=== PATIENT | male | born 1935 | race Caucasian/White ===

== ENCOUNTER 2021-06-10 17:11 | Inpatient (IN) | payer OTHER ==
[~2021-06-10] VITALS: Ht 185.4 cm; Wt 90.4 kg
[~2021-06-10 17:11] MED LIST: CEPH500 PO; HYDACE5 PO; SERT50; SIMV40
[2021-06-10 18:25] LABS: BASOPHILS ABSOLUTE AUTO 0.02 K/mm3 (0.00-0.23); BASOPHILS PERCENT AUTO 0 % (0-2); EOSINOPHILS ABSOLUTE AUTO 0.02 K/mm3 (0.00-0.68); EOSINOPHILS PERCENT AUTO 0 % (0-6); IMMATURE GRAN ABSOLUTE AUTO 0.04 K/mm3 (0.00-0.10); IMMATURE GRAN PERCENT AUTO 1 % (0-1); LYMPHOCYTES ABSOLUTE AUTO 1.73 K/mm3 (0.84-5.20); LYMPHOCYTES PERCENT AUTO 20 % (21-46); MONOCYTES ABSOLUTE AUTO 0.67 K/mm3 (0.16-1.47); MONOCYTES PERCENT AUTO 8 % (4-13); Mean Corpuscular HGB 31.6 pg (26.0-34.0); Mean Corpuscular HGB Conc 33.3 g/dL (31.5-36.5); Mean Corpuscular Volume 95 fL (80-100); Mean Platelet Volume 9.6 fL (9.1-12.4); NEUTROPHILS PERCENT AUTO 71 % (41-73); Platelet Count 247 K/mm3 (150-400); RDW Coefficient Variation 13.2 % (11.7-14.2); RDW Standard Deviation 46.3 fL (35.1-46.3); Red Blood Cell Count 4.43 M/mm3 (4.30-5.90); White Blood Cell Count 8.48 K/mm3 (4.00-11.30)
[2021-06-10 18:50] LABS: Alanine Aminotransfer (ALT/SGP 19 U/L (12-78); Albumin, Blood 3.4 g/dL (3.4-5.0); Albumin/Globulin Ratio 0.7 (0.8-1.8); Alk Phos 63 U/L (50-136); Anion Gap 6 mmol/L (6-16); Aspartate Aminotrans (AST/SGOT 22 U/L (12-37); Bilirubin, Total 0.5 mg/dL (0.1-1.0); Blood Urea Nitrogen 17 mg/dL (8-24); Bun/Creatinine Ratio 16.7 (12.0-20.0); CO2, Blood 30 mmol/L (21-32); Calcium, Blood 9.4 mg/dL (8.5-10.1); Chloride, Blood 100 mmol/L (98-108); Creatinine, Blood 1.02 mg/dL (0.60-1.20); Globulin, Blood 4.6 g/dL (2.2-4.0); Glomerular Filtration Rate >60 (60-); Glucose, Blood 142 mg/dL (70-99); Potassium, Blood 4.6 mmol/L (3.5-5.5); Sodium, Blood 136 mmol/L (136-145)
[2021-06-10 20:28] LABS: Influenza A, PCR NEGATIVE (NEGATIVE); Influenza B, PCR NEGATIVE (NEGATIVE); Resp Syncytial Virus, PCR NEGATIVE (NEGATIVE); SARS-Cov-2 (COVID-19) PCR, MMC NEGATIVE (NEGATIVE)
[2021-06-11] MEDS ORDERED: AMLO5 PO (01:12)
[2021-06-11] MEDS ORDERED: EUTHYROX50 MCG PO (01:12)
[2021-06-11] MEDS ORDERED: Prinivil10 MG (01:12)
[2021-06-11] MEDS ORDERED: SERT100 PO (01:13)
[2021-06-11 03:41] LABS: BASOPHILS ABSOLUTE AUTO 0.01 K/mm3 (0.00-0.23); BASOPHILS PERCENT AUTO 0 % (0-2); EOSINOPHILS ABSOLUTE AUTO 0.01 K/mm3 (0.00-0.68); EOSINOPHILS PERCENT AUTO 0 % (0-6); Hematocrit 38.1 % (37.0-53.0); Hemoglobin 12.6 g/dL (13.5-17.5); IMMATURE GRAN ABSOLUTE AUTO 0.02 K/mm3 (0.00-0.10); IMMATURE GRAN PERCENT AUTO 0 % (0-1); LYMPHOCYTES ABSOLUTE AUTO 0.88 K/mm3 (0.84-5.20); LYMPHOCYTES PERCENT AUTO 10 % (21-46); MONOCYTES PERCENT AUTO 7 % (4-13); Mean Corpuscular HGB 31.8 pg (26.0-34.0); Mean Corpuscular HGB Conc 33.1 g/dL (31.5-36.5); Mean Corpuscular Volume 96 fL (80-100); Mean Platelet Volume 9.6 fL (9.1-12.4); NEUTROPHILS ABSOLUTE AUTO 7.07 K/mm3 (1.96-9.15); NEUTROPHILS PERCENT AUTO 82 % (41-73); Platelet Count 206 K/mm3 (150-400); RDW Coefficient Variation 13.1 % (11.7-14.2); RDW Standard Deviation 46.9 fL (35.1-46.3); Red Blood Cell Count 3.96 M/mm3 (4.30-5.90); White Blood Cell Count 8.59 K/mm3 (4.00-11.30)
[2021-06-11 04:06] LABS: Alanine Aminotransfer (ALT/SGP 16 U/L (12-78); Albumin, Blood 2.8 g/dL (3.4-5.0); Albumin/Globulin Ratio 0.7 (0.8-1.8); Alk Phos 52 U/L (50-136); Anion Gap 5 mmol/L (6-16); Aspartate Aminotrans (AST/SGOT 17 U/L (12-37); Bilirubin, Total 0.4 mg/dL (0.1-1.0); Blood Urea Nitrogen 23 mg/dL (8-24); Bun/Creatinine Ratio 20.4 (12.0-20.0); CO2, Blood 28 mmol/L (21-32); Calcium, Blood 8.3 mg/dL (8.5-10.1); Chloride, Blood 104 mmol/L (98-108); Creatinine, Blood 1.13 mg/dL (0.60-1.20); Globulin, Blood 3.9 g/dL (2.2-4.0); Glomerular Filtration Rate >60 (60-); Glucose, Blood 153 mg/dL (70-99); Potassium, Blood 5.2 mmol/L (3.5-5.5); Sodium, Blood 137 mmol/L (136-145); Total Protein, Blood 6.7 g/dL (6.4-8.2)
[2021-06-11 09:55] LABS: Source, Urine Foley catheter
[2021-06-11 10:11] LABS: Appearance, Urine Clear (Clear); Bilirubin, Urine Neg (Neg); Blood, Urine 5+ (Neg); Color, Urine Yellow (P-Yellow); Glucose Qualitative, Urine Neg (Neg); Ketones, Urine Neg (Neg); Leukocyte Esterase, Urine 1+ (Neg); Nitrite, Urine Neg (Neg); Protein, Urine 2+ (Neg); Urobilinogen, Urine NORM (Normal)
[2021-06-11 10:32] LABS: Squamous Epithelial Cells Not Seen /hpf (Few); White Blood Cells, Urine 0-2 /hpf (0-5)
[2021-06-11 10:33] LABS: Bacteria Few /hpf; Mucus Mod (0-Heavy)
--- NOTE | 2021-06-11 11:35 | NUR ---
REASSESSMENT PT HAS SPENT MOST OF THE MORNING SITTING UP IN THE CHAIR. DR. SHANNON CAME BY AND OK'D PT TO HAVE ICE CHIPS, WATER AND PO MEDS. PT IS TOELRATING THEM SO FAR. HE HAS HYPOACTIVE BOWEL TONES BUT IS NOT PASSING GAS YET. HIS ABDOMINAL DRESSING IS DRY AND INTACT, SMALL AMT OF OLD DRAINAGE. DR. SHANNON REMOVED NGT DURING HIS ROUNDS. ASKED DR. SHANNON ABOUT REMOVING FRAIRE BUT HE WANTED TO KEEP IT ANOTHER DAY SINCE PT'S UO WAS BORDERLINE OVERNIGHT. LUNGS REMAIN CLEAR, RA, SR, BP STABLE. DR. SHANNON GAVE OK FOR PT TO BE SURGICAL FLOOR STATUS AND DR. PERES ORDERED FOR NO TELE WHEN HE CAME BY. SPOKE WITH PT'S KATHI AND PROVIDED UPDATE. CONTINUING TO MONITOR.
--- NOTE | 2021-06-11 14:17 | NUR ---
Pt. is awake and in bed. Pt. welcomes my visit. Introduce the Pt. to the "What we care to know" survey. As survey proceeds pt. opens up to much detail. Faciliatate a life review. Pt. displays evidence of trust, and verbalizes the context of his family in great detail. Listen with empathy and fascination. Prayed for the pt. and his spouse whose health is compromised as well. Pt. verbalized gratitude for the spiritual care visit. I will post the "What we Care to Know" in his room...ICU-8.
--- NOTE | 2021-06-11 16:33 | NUR ---
SHIFT SUMMARY PT HAS DONE WELL THROUGHOUT THE DAY, SPENDING THE MORNING IN THE CHAIR AND GOING FOR A SHORT WALK. AFTER HIS WALK, PT'S URINE TURNED RED AND A COUPLE SMALL CLOTS, BUT NOW LATER THIS EVENING HIS URINE HAS LIGHTENED BACK TO A LIGHT PEACH COLOR. PT REMAINS ALERT AND ORIENTED, SOMETIMES APPEARS TO HAVE TO SEARCH FOR WORDS TO SAY. LUNGS ARE CLEAR, RA. SR, BP STABLE. ABODMEN IS SOFT, ABDOMINAL BINDER IN PLACE. DRESSINGIS DRY AND INTACT, NO CHANGE IN THE SMALL AMT OF OLD DRAINAGE ON THE DRESSING. TOLERATING ICE WATER. DENIES PASSING GAS, BUT HYPOACTIVE BOWEL TONES AUSCULTATED. PT'S DAUGHTER VISITED THIS AFTERNOON AND WAS UPDATED BY DR. SHANNON AND NURSING STAFF. CONTINUING TO MONITOR.
--- NOTE | 2021-06-11 18:46 | NUR ---
TRANSFER PT TRANSFERRED TO MEDICAL FLOOR RM [id number]. REPORT GIVEN TO CHAPINCITO TABARES. PT TRANSPORTED VIA WC WITH AIDE AND RN. ALL BELONGINGS SENT UPSTAIRS WITH PT. PT TOLERATED TRANSFER WELL.
[2021-06-12 05:19] LABS: Anion Gap 6 mmol/L (6-16); Blood Urea Nitrogen 20 mg/dL (8-24); Bun/Creatinine Ratio 17.9 (12.0-20.0); CO2, Blood 27 mmol/L (21-32); Calcium, Blood 8.3 mg/dL (8.5-10.1); Chloride, Blood 104 mmol/L (98-108); Creatinine, Blood 1.12 mg/dL (0.60-1.20); Glomerular Filtration Rate >60 (60-); Glucose, Blood 114 mg/dL (70-99); Potassium, Blood 4.1 mmol/L (3.5-5.5); Sodium, Blood 137 mmol/L (136-145)
[2021-06-12 05:58] LABS: BASOPHILS ABSOLUTE AUTO 0.02 K/mm3 (0.00-0.23); BASOPHILS PERCENT AUTO 0 % (0-2); EOSINOPHILS ABSOLUTE AUTO 0.03 K/mm3 (0.00-0.68); EOSINOPHILS PERCENT AUTO 0 % (0-6); Hematocrit 36.6 % (37.0-53.0); Hemoglobin 12.2 g/dL (13.5-17.5); IMMATURE GRAN ABSOLUTE AUTO 0.04 K/mm3 (0.00-0.10); IMMATURE GRAN PERCENT AUTO 1 % (0-1); LYMPHOCYTES PERCENT AUTO 15 % (21-46); MONOCYTES ABSOLUTE AUTO 0.77 K/mm3 (0.16-1.47); MONOCYTES PERCENT AUTO 9 % (4-13); Mean Corpuscular HGB 31.8 pg (26.0-34.0); Mean Corpuscular HGB Conc 33.3 g/dL (31.5-36.5); Mean Corpuscular Volume 95 fL (80-100); Mean Platelet Volume 9.3 fL (9.1-12.4); NEUTROPHILS ABSOLUTE AUTO 6.32 K/mm3 (1.96-9.15); NEUTROPHILS PERCENT AUTO 75 % (41-73); Platelet Count 202 K/mm3 (150-400); RDW Coefficient Variation 13.2 % (11.7-14.2); RDW Standard Deviation 46.5 fL (35.1-46.3); Red Blood Cell Count 3.84 M/mm3 (4.30-5.90); White Blood Cell Count 8.48 K/mm3 (4.00-11.30)
--- NOTE | 2021-06-12 06:38 | NUR ---
SHIFT SUMMARY PATIENT ALERT AND ORIENTED X3. HAD NO COMPLAINTS OF PAIN OR SHORTNESS OF BREATH. HAD NO ACUTE ISSUES NOTED OVERNIGHT. BED IN LOWEST POSITION WITH WHEELS LOCKED AND ALARM ON. CALL LIGHT WITHIN REACH. REPORT GIVEN TO ONCOMING RN.
--- NOTE | 2021-06-12 10:17 | NUR ---
06/12/21 1017 Monique Castillo VERIFICATIONS: EDIT CHART.
== END 2021-06-12 15:19 | disposition home or self-care (01) | DRG 354 ==
LOC: ER 17:11 → ICUE 20:51 → ICUW 20:51 → ICUE 22:29 → MEDS 06-11 18:39 → ENPENDDIS 06-12 12:06 → MEDS 06-12 15:19
PROVIDERS: Family Medicine; Physician Assistant; Surgery; ADMIT Hospitalist
PROC: 0WUF0JZ Supplement Abdominal Wall with Synthetic Substitute, Open Approach (ICD-10-PCS; principal; 2021-06-10 20:30)
DX: K43.0 Incisional hernia with obstruction, without gangrene (principal); K55.9 Vascular disorder of intestine, unspecified; I10 Essential (primary) hypertension; E03.9 Hypothyroidism, unspecified; F41.8 Other specified anxiety disorders; Z20.822 Contact with and (suspected) exposure to COVID-19; Z88.8 Allergy status to other drugs, medicaments and biological substances; J44.9 Chronic obstructive pulmonary disease, unspecified; F32.A Depression, unspecified; Z98.890 Other specified postprocedural states
CPT/HCPCS: 0241U; 36415; 80048; 80053; 81001; 83605; 85025; 87086; 93005; 93010; 96374; 99285-25; A9270; C1781; J1100; J1885; J2250; J2405; J2543; J2704; J3010; J7030; J7120

== ENCOUNTER 2022-06-14 05:55 | Day surgery (SDC) | payer OTHER ==
[~2022-06-14] VITALS: Ht 175.3 cm; Wt 87.5 kg
[~2022-06-14 05:55] MED LIST changes: +AMLO5 PO; +EUTHYROX50 MCG PO; +Prinivil10 MG PO; +SERT100 PO
--- NOTE | 2022-06-14 07:12 | NUR ---
History, Chart, Medications and Allergies reviewed before start of procedure. Lungs WITH EXP WHEEZES T/O. DENIES SOB. Patient confirms NPO status and agrees with scheduled surgery. Pre-Op teaching done. Pt verbalizes understanding. Patient reports completing Chlorhexadine shower X2 prior to admission to hospital.
--- NOTE | 2022-06-14 07:25 | NUR ---
PT GIVEN DUO-NEB TREATMENT, EXP WHEEZES IMPROVED, CRACKLES NOTED ON R SIDE UPPER AND LOWER LUNG SAINI. PT COUGHING UP CLEARISH SPUTUM.
--- NOTE | 2022-06-14 08:17 | NUR ---
06/14/22 0817 REGINA JAMES SMALL LACERATION NOTED PRIOR TO OR PROCEDURE ON PT LEFT BARNETT. PROVIDER AWARE.
--- NOTE | 2022-06-14 16:34 | NUR ---
SHIFT SUMMARY PT A&OX4, VSS/RA, BARBY PO REG DIET, VOIDED, PAIN MANAGED WITH TYLENOL/TORADOL, AMB SBA FWW & GB. S/P L TKA, AQUACEL CDI, PHYSICAL THERAPY HONEY WILL REPORT TO ONCOMING NOC RN.
--- NOTE | 2022-06-15 04:53 | NUR ---
SHIFT SUMMARY POD1 L TKA WITH AQUACEL DRESSING, REMAINED CDI. PT REPORTS MINIMAL PAIN, PAIN MANAGED WITH TYLENOL AND TORADOL. POLAR PACK, ANGIE ROBERTS AND SCD. LLE ELEVATED. TOLERATING PO INTAKE. DENIES N/V. VSS. DENIES DIZZINESS. PT WALKED IN THE HALLWAY LAST NIGHT. UP IN THE RECLINER THIS MORNING. AOX4. STEADY ON HIS FEET. CALL LIGHT WITHIN REACH. WILL PROVIDE REPORT TO ONCOMING NURSE.
[2022-06-15 04:57] LABS: BASOPHILS ABSOLUTE AUTO 0.02 K/mm3 (0.00-0.23); BASOPHILS PERCENT AUTO 0 % (0-2); EOSINOPHILS ABSOLUTE AUTO 0.11 K/mm3 (0.00-0.68); EOSINOPHILS PERCENT AUTO 1 % (0-6); Hematocrit 31.9 % (37.0-53.0); Hemoglobin 10.6 g/dL (13.5-17.5); IMMATURE GRAN ABSOLUTE AUTO 0.04 K/mm3 (0.00-0.10); IMMATURE GRAN PERCENT AUTO 1 % (0-1); LYMPHOCYTES ABSOLUTE AUTO 1.82 K/mm3 (0.84-5.20); LYMPHOCYTES PERCENT AUTO 24 % (21-46); MONOCYTES ABSOLUTE AUTO 0.65 K/mm3 (0.16-1.47); MONOCYTES PERCENT AUTO 9 % (4-13); Mean Corpuscular HGB 31.5 pg (26.0-34.0); Mean Corpuscular HGB Conc 33.2 g/dL (31.5-36.5); Mean Corpuscular Volume 95 fL (80-100); Mean Platelet Volume 9.3 fL (9.1-12.4); NEUTROPHILS ABSOLUTE AUTO 4.97 K/mm3 (1.96-9.15); NEUTROPHILS PERCENT AUTO 65 % (41-73); Platelet Count 175 K/mm3 (150-400); RDW Coefficient Variation 12.8 % (11.7-14.2); RDW Standard Deviation 44.3 fL (35.1-46.3); Red Blood Cell Count 3.36 M/mm3 (4.30-5.90); White Blood Cell Count 7.61 K/mm3 (4.00-11.30)
[2022-06-15 05:58] LABS: Bun/Creatinine Ratio 14.6 (12.0-20.0); Calcium, Blood 7.9 mg/dL (8.5-10.1); Creatinine, Blood 1.23 mg/dL (0.60-1.20); Potassium, Blood 3.6 mmol/L (3.5-5.5)
[2022-06-15] MEDS ORDERED: ACET500 PO (10:49)
[2022-06-15] MEDS ORDERED: ASPI81CH PO (10:50)
[2022-06-15] MEDS ORDERED: OXYC5 PO (10:51)
--- NOTE | 2022-06-15 13:17 | NUR ---
L KNEE SWELLING THIS RN REACHED OUT TO DR. HUGHES AT 1053 REQUESTING A CALL REGARDING L KNEE SWELLING. PT STATES THE BULDGE BEHIND THE L KNEE IS BASELINE; THIS IS CONCERNING SINCE IT IS ON THE SURGICAL SIDE. REACHED OUT TO DR. HUGHES AT 1303, WAITING FOR A RETURN CALL AT THIS TIME. NO CHANGE IN PT STATUS AT THIS TIME. L KNEE SWELLING/BULDGE BEHIND THE KNEE IS UNCHANGED FROM PREVIOUS ASSESSMENT. PT IS CURRENTLY WAITING FOR HIS TRANSPORT HOME.
--- NOTE | 2022-06-15 13:31 | NUR ---
ADVISED DR. HUGHES OF L KNEE SWELLING/BULDGE TO THE BACK TO THE KNEE WELL FIRMNESS IN THAT AREA. PULSES PRESENT, PALPABLE AND EQUAL BILATERALLY. PT DENIES NUMBNESS AND TINGLING. PER DR. HUGHES OK FOR PT TO DISCHARGE. PT WAS EDUCATED TO MONITOR FOR INCREASED SWELLING OR ANY CHANGES. EDUCATION ALSO PROVIDED TO MONITOR FOR HEAT AND REDNESS. WILL CONTINUE TO MONITOR UNTIL PT'S FAMILY ARRIVES TO TAKE HIM HOME.
--- NOTE | 2022-06-15 15:06 | NUR ---
DISCHARGE PT AND HIS DAUGHTER WERE PROVIDED WITH WRITTEN AND VERBAL DISCHARGE INSTRUCTIONS; THEY REPORTED UNDERSTANDING. PT'S WALKER WAS ADJUSTED TO THE APPROPRIATE HEIGHT FOR THE PATIENT PRIOR TO DISCHARGE. PAIN MANAGED AT TIME OF DISCHARGE. VSS. PT SENT HOME WITH INCENTIVE SPIROMETER AND EDUCATED/ENCOURAGED TO CONTINUE USE. EDUCATION PROVIDED REGARDING POLAR PACK USE. CLEAN DRESSING AND DRESSING CHANGE INSTRUCTIONS PROVIDED. PT EDUCATED ABOUT NEW MEDICATIONS. PT ASSISTED OUT IN W/C BY JUVENAL RED. PT DISCHARGED AT 1502.
== END 2022-06-15 15:02 | disposition home or self-care (01) ==
LOC: ORSCMMR 05:55 → ORD 07:30 → SURS 10:08 → ORSCMMR 06-15 15:02
PROVIDERS: Orthopaedic Surgery
PROC: 8E0Y0CZ Robotic Assisted Procedure of Lower Extremity, Open Approach (ICD-10-PCS; principal; 2022-06-14 07:30)
PROC: 0SRD0JA Replacement of Left Knee Joint with Synthetic Substitute, Uncemented, Open Approach (ICD-10-PCS; principal; 2022-06-14 07:30)
DX: M17.12 Unilateral primary osteoarthritis, left knee (principal); I10 Essential (primary) hypertension; F41.8 Other specified anxiety disorders; E03.9 Hypothyroidism, unspecified; Z79.899 Other long term (current) drug therapy
CPT/HCPCS: 27447; 0055T; S2900; 36415; 73560-LT; 80048; 83735; 85025; 97110; 97116; 97161; A9270; C1776; J0171; J0690; J0735; J1100; J1885; J2370; J2405; J2704; J2795; J3010; J7120